=== PATIENT | male | born 1980 | race Two or more races ===

== ENCOUNTER 2021-09-25 15:34 | Emergency (ER) | payer MEDICAID, MEDICARE, OTHER ==
[~2021-09-25] VITALS: Ht 175.3 cm; Wt 77.1 kg
--- NOTE | 2021-09-25 16:00 | NUR ---
RADHA GODWIN "From Streets complaining people after him/paranoia and CP". PATIENT IS ASLEEP BUT AROUSABLE. ABLE TO RESPOND TO VERBAL COMMAND. WHEN ASKED HOW HE WAS HE SAID HE FEELS GREAT. PLACED IN RM 13, VITALS CHECKED.
[2021-09-25] MEDS ORDERED: OLANZAPINE 5 MG TABLET PO ONE (16:30)
[2021-09-25] MEDS ORDERED: ACETAMINOPHEN ES 500 MG TABLET PO ONE (16:30)
[2021-09-25] MEDS ORDERED: ASPIRIN 81 MG TAB.CHEW PO ONE (16:30)
[2021-09-25] MEDS ORDERED: IV NS 0.9% 1,000 ML BAG IV ONE (16:30)
[2021-09-25 16:46] LABS: BASOPHILS % (AUTO) 0.5 % (0.0-2.0); EOSINOPHILS % (AUTO) 3.8 % (0.0-6.0); HEMATOCRIT 42 % (39-51); HEMOGLOBIN 13.2 g/dL (13.5-17.5); LYMPHOCYTES # (AUTO) 1.8 K/uL (0.8-4.8); LYMPHOCYTES % (AUTO) 31.5 % (20.0-44.0); MEAN CORPUSCULAR HGB CONC 32 g/dl (31.0-36.0); MEAN CORPUSCULAR VOLUME 87 fL (80-96); MONOCYTES # (AUTO) 0.4 K/uL (0.1-1.30); MONOCYTES % (AUTO) 7.2 % (2.0-12.0); NEUTROPHILS # (AUTO) 3.2 K/uL (1.8-8.9); PLATELET COUNT (AUTO) 303 K/uL (150-450); WHITE BLOOD COUNT (AUTO) 5.7 K/uL (4.3-11.0)
[2021-09-25] MEDS ORDERED: ACETAMINOPHEN ES 500 MG TABLET ONE (16:49)
[2021-09-25] MEDS ORDERED: ASPIRIN EC 81 MG TABLET.DR PO ONE (16:50)
[2021-09-25] MEDS ORDERED: OLANZAPINE 5 MG TABLET ONE (16:50)
--- NOTE | 2021-09-25 17:05 | NUR ---
IV CANNULA INSERTED ON LEFT AC USING G18 NEEDLE. DUE MEDS GIVEN. NS 1L BOLUS STARTED.
--- NOTE | 2021-09-25 17:20 | NUR ---
ALEXANDRA JEROME [facility] [phone]
[2021-09-25 18:26] LABS: ALANINE AMINOTRANSFERASE 20 U/L (12-78); ALBUMIN 3.3 g/dL (3.4-5.0); ALCOHOL, BLOOD < 3 mg/dL (0-0); ALKALINE PHOSPHATASE 87 U/L (46-116); ASPARTATE AMINOTRANSFERASE 11 U/L (15-37); BILIRUBIN,TOTAL 0.1 mg/dL (0.2-1.0); CALCIUM, SERUM 9.2 mg/dL (8.5-10.1); CARBON DIOXIDE 24 mmol/L (21-32); CHLORIDE 108 mmol/L (98-107); GLUCOSE 111 mg/dL (74-106); SODIUM SERUM 143 mmol/L (136-145); TOTAL PROTEIN, SERUM 6.7 g/dL (6.4-8.2); UREA NITROGEN, BLOOD 12 mg/dL (7-18)
--- NOTE | 2021-09-25 18:30 | NUR ---
PATIENT IS ASLEEP BUT AROUSABLE. BEING INSTRUCTED THAT WE NEED TO COLLECT URINE SAMPLES. PT CANNOT PROVIDE URINE AT THE MOMENT.
[2021-09-25 19:12] LABS: ACETAMINOPHEN 0 ug/ml (10-30)
--- NOTE | 2021-09-25 20:24 | NUR ---
PATIENT STILL CANNOT PROVIDE URINE SAMPLES.
[2021-09-25 20:53] LABS: BILIRUBIN,DIRECT 0.1 mg/dL (0.0-0.2)
--- NOTE | 2021-09-25 22:34 | NUR ---
iv cannula removed.
--- NOTE | 2021-09-25 22:34 | NUR ---
Patient discharged to home in stable condition. Written and verbal after care instructions given. Patient verbalizes understanding of instruction.
[2021-09-25 22:35] VITALS: BP 122/71
== END 2021-09-25 22:36 | disposition home or self-care (01) ==
LOC: ER 15:58
DX: R07.89 Other chest pain (principal); F17.200 Nicotine dependence, unspecified, uncomplicated; E87.8 Other disorders of electrolyte and fluid balance, not elsewhere classified; F29 Unspecified psychosis not due to a substance or known physiological condition; Z59.00 Homelessness unspecified
CPT/HCPCS: 36415; 71045; 80048; 80076; 80143; 80320; 82550; 83880; 84484; 85025; 93005 ×2; 99285; J7030; G0480

== ENCOUNTER 2021-09-26 14:19 | Emergency (ER) | payer MEDICAID, MEDICARE, OTHER ==
[~2021-09-26] VITALS: Ht 180.3 cm; Wt 72.6 kg
--- NOTE | 2021-09-26 15:27 | NUR ---
BIBS C/O HEARING VOICES FOR A WHILE. PT DENIES SUICIDAL THOUGHTS AND INTENT.
--- NOTE | 2021-09-26 15:58 | NUR ---
URINE COLLECTED AND SENT TO LAB
--- NOTE | 2021-09-26 15:58 | NUR ---
COVID SWAB DONE AND SENT TO LAB
[2021-09-26 16:19] LABS: BASOPHILS % (AUTO) 0.3 % (0.0-2.0); EOSINOPHILS % (AUTO) 3.9 % (0.0-6.0); HEMATOCRIT 41 % (39-51); HEMOGLOBIN 13.1 g/dL (13.5-17.5); LYMPHOCYTES # (AUTO) 1.8 K/uL (0.8-4.8); LYMPHOCYTES % (AUTO) 31.2 % (20.0-44.0); MEAN CORPUSCULAR HGB CONC 32 g/dl (31.0-36.0); MEAN CORPUSCULAR VOLUME 88 fL (80-96); MONOCYTES # (AUTO) 0.4 K/uL (0.1-1.30); MONOCYTES % (AUTO) 6.2 % (2.0-12.0); NEUTROPHILS # (AUTO) 3.4 K/uL (1.8-8.9); NEUTROPHILS % (AUTO) 58.4 % (43.0-81.0); PLATELET COUNT (AUTO) 300 K/uL (150-450); RED BLOOD CELL COUNT(AUTO) 4.71 MIL/uL (4.5-6.0); WHITE BLOOD COUNT (AUTO) 5.9 K/uL (4.3-11.0)
[2021-09-26 16:37] LABS: BILIRUBIN,URINE NEGATIVE (NEGATIVE); COLOR,URINE YELLOW (YELLOW); LEUKOCYTE ESTERASE ,URINE NEGATIVE (NEGATIVE); NITRITE, URINE NEGATIVE (NEGATIVE); PH,URINE 5.5 (5.0-8.0); PROTEIN,URINE NEGATIVE (NEGATIVE); UGLUCOSE NEGATIVE (NEGATIVE); UROBILINOGEN,URINE 0.2 EU/dL (0.2)
[2021-09-26 17:08] LABS: ALANINE AMINOTRANSFERASE 16 U/L (12-78); ALBUMIN 3.2 g/dL (3.4-5.0); ALCOHOL, BLOOD < 3 mg/dL (0-0); ALKALINE PHOSPHATASE 85 U/L (46-116); ASPARTATE AMINOTRANSFERASE 10 U/L (15-37); BILIRUBIN,DIRECT 0.1 mg/dL (0.0-0.2); BILIRUBIN,TOTAL 0.2 mg/dL (0.2-1.0); CALCIUM, SERUM 9.1 mg/dL (8.5-10.1); CARBON DIOXIDE 27 mmol/L (21-32); CHLORIDE 107 mmol/L (98-107); GLUCOSE 113 mg/dL (74-106); POTASSIUM 4.2 mmol/L (3.5-5.1); SODIUM SERUM 142 mmol/L (136-145); TOTAL PROTEIN, SERUM 6.8 g/dL (6.4-8.2); UREA NITROGEN, BLOOD 16 mg/dL (7-18)
--- NOTE | 2021-09-26 18:23 | NUR ---
FOOD TRAY PROVIDED
--- NOTE | 2021-09-27 09:46 | NUR ---
ACCEPTED AT [facility] ([facility]) UNDER DR. ARRINGTON REPORT NUMBER: [phone]
--- NOTE | 2021-09-27 09:51 | NUR ---
ALEXANDRA JEROME [phone] MOM
--- NOTE | 2021-09-27 10:00 | NUR ---
[facility] CALLED ETA 60 MINS PER EMRE.
--- NOTE | 2021-09-27 11:03 | NUR ---
TRANSPORT AT BEDSIDE.
--- NOTE | 2021-09-27 11:07 | NUR ---
REPORT GIVEN TO AMELIE HERNDON. [address], [id number]. PATIENT WILL BE GOING TO [facility].
--- NOTE | 2021-09-27 11:49 | NUR ---
PATIENT TRANSPORTED VIA GURNEY BY [facility]
[2021-09-27 11:50] VITALS: BP 117/65
== END 2021-09-27 11:51 ==
LOC: ER 14:23
DX: F29 Unspecified psychosis not due to a substance or known physiological condition (principal); Z59.00 Homelessness unspecified; Z20.822 Contact with and (suspected) exposure to COVID-19
CPT/HCPCS: 36415; 80048; 80076; 80307; 80320; 81003; 85025; 87426; 99285; C9803; G0480

== ENCOUNTER 2021-11-19 01:20 | Emergency (ER) | payer MEDICAID, MEDICARE ==
[~2021-11-19] VITALS: Ht 175.3 cm; Wt 77.1 kg
[2021-11-19 01:35] VITALS: BP 108/70
[2021-11-19] MEDS ORDERED: IBUPROFEN 600 MG TABLET ONE (02:26)
[2021-11-19] MEDS ORDERED: OLANZAPINE 5 MG TABLET ONE (02:27)
--- NOTE | 2021-11-19 02:29 | NUR ---
Patient discharged to home in stable condition. Written and verbal after care instructions given. Patient verbalizes understanding of instruction. Pt ambulatory with a steady gait
[2021-11-19] MEDS ORDERED: OLANZAPINE 5 MG TABLET PO ONE (02:30)
[2021-11-19] MEDS ORDERED: IBUPROFEN 600 MG TABLET PO ONE (02:30)
== END 2021-11-19 02:33 | disposition home or self-care (01) ==
LOC: ER 01:21
DX: M79.10 Myalgia, unspecified site (principal); R00.2 Palpitations; F15.10 Other stimulant abuse, uncomplicated; F31.9 Bipolar disorder, unspecified; F17.200 Nicotine dependence, unspecified, uncomplicated; Z59.00 Homelessness unspecified

== ENCOUNTER 2021-12-20 20:27 | Emergency (ER) | payer MEDICAID, MEDICARE ==
[~2021-12-20] VITALS: Ht 167.6 cm; Wt 62.6 kg
--- NOTE | 2021-12-20 20:45 | NUR ---
COVID SWAB DONE
--- NOTE | 2021-12-20 20:45 | NUR ---
PATIENT UNABLE TO PROVIDE URINE AT THIS TIME.
[2021-12-20 21:22] LABS: BASOPHILS % (AUTO) 0.4 % (0.0-2.0); EOSINOPHILS % (AUTO) 3.9 % (0.0-6.0); HEMATOCRIT 41 % (39-51); HEMOGLOBIN 13.5 g/dL (13.5-17.5); LYMPHOCYTES # (AUTO) 2.3 K/uL (0.8-4.8); LYMPHOCYTES % (AUTO) 24.2 % (20.0-44.0); MEAN CORPUSCULAR HGB CONC 33 g/dl (31.0-36.0); MEAN CORPUSCULAR VOLUME 85 fL (80-96); MONOCYTES # (AUTO) 0.7 K/uL (0.1-1.30); NEUTROPHILS # (AUTO) 6.2 K/uL (1.8-8.9); NEUTROPHILS % (AUTO) 64.5 % (43.0-81.0); PLATELET COUNT (AUTO) 312 K/uL (150-450); RED BLOOD CELL COUNT(AUTO) 4.79 MIL/uL (4.5-6.0); WHITE BLOOD COUNT (AUTO) 9.6 K/uL (4.3-11.0)
[2021-12-20 21:24] LABS: BILIRUBIN,URINE NEGATIVE (NEGATIVE); COLOR,URINE YELLOW (YELLOW); LEUKOCYTE ESTERASE ,URINE NEGATIVE (NEGATIVE); NITRITE, URINE NEGATIVE (NEGATIVE); PROTEIN,URINE NEGATIVE (NEGATIVE); UGLUCOSE NEGATIVE (NEGATIVE); UROBILINOGEN,URINE 0.2 EU/dL (0.2)
[2021-12-20] MEDS ORDERED: OLANZAPINE 5 MG TABLET ONE (21:56)
[2021-12-20] MEDS ORDERED: OLANZAPINE ZYDIS 5 MG TAB.RAPDIS PO ONE (22:00)
[2021-12-20 22:15] LABS: ALANINE AMINOTRANSFERASE 31 U/L (12-78); ALBUMIN 4.2 g/dL (3.4-5.0); ALCOHOL, BLOOD < 3 mg/dL (0-0); ALKALINE PHOSPHATASE 94 U/L (46-116); ASPARTATE AMINOTRANSFERASE 25 U/L (15-37); BILIRUBIN,DIRECT 0.2 mg/dL (0.0-0.2); BILIRUBIN,TOTAL 0.7 mg/dL (0.2-1.0); CALCIUM, SERUM 9.4 mg/dL (8.5-10.1); CARBON DIOXIDE 29 mmol/L (21-32); CHLORIDE 103 mmol/L (98-107); CREATININE 1.1 mg/dL (0.6-1.3); GLUCOSE 86 mg/dL (74-106); POTASSIUM 4.3 mmol/L (3.5-5.1); SODIUM SERUM 137 mmol/L (136-145); TOTAL PROTEIN, SERUM 8.1 g/dL (6.4-8.2); UREA NITROGEN, BLOOD 15 mg/dL (7-18)
[2021-12-20 22:24] LABS: ACETAMINOPHEN 0 ug/ml (10-30)
[2021-12-20] MEDS: OLANZAPINE 5 MG TABLET PO ONE (22:26)
--- NOTE | 2021-12-20 22:49 | NUR ---
PATIENT DENIES S/I H/I DOES NOT WISH TO GO VOLUNTARY TO A PSYCH FACILITY. AWARE.
[2021-12-20 22:52] VITALS: BP 140/66
--- NOTE | 2021-12-20 22:52 | NUR ---
Patient discharged to home in stable condition. Written and verbal after care instructions given. Patient verbalizes understanding of instruction.
== END 2021-12-20 22:52 | disposition home or self-care (01) ==
LOC: ER 20:33
DX: F29 Unspecified psychosis not due to a substance or known physiological condition (principal); F15.10 Other stimulant abuse, uncomplicated; Z59.00 Homelessness unspecified; F31.9 Bipolar disorder, unspecified; Z20.822 Contact with and (suspected) exposure to COVID-19
CPT/HCPCS: 36415; 80048; 80076; 80143; 80307; 80320; 81003; 85025; 87426; 99284; C9803; G0480

== ENCOUNTER 2022-01-12 00:19 | Emergency (ER) | payer MEDICAID, MEDICARE ==
[~2022-01-12] VITALS: Ht 175.3 cm; Wt 77.1 kg
--- NOTE | 2022-01-12 00:35 | NUR ---
[id number]. HEARING VOICES TELLING HIM TO HURT HIMSELF. WANTS TO VOLUNTARY ADMISSION TO PSYCH. PT A/OX3. TOLERATING R/A WELL WITH NO SOB. RESP EVEN AND NON LABORED. CONNECTED PT TO POX AND MONITOR.
[2022-01-12 00:47] LABS: BASOPHILS % (AUTO) 0.3 % (0.0-2.0); EOSINOPHILS % (AUTO) 1.8 % (0.0-6.0); HEMATOCRIT 39 % (39-51); HEMOGLOBIN 12.9 g/dL (13.5-17.5); LYMPHOCYTES # (AUTO) 0.8 K/uL (0.8-4.8); LYMPHOCYTES % (AUTO) 10.5 % (20.0-44.0); MEAN CORPUSCULAR HGB CONC 33 g/dl (31.0-36.0); MEAN CORPUSCULAR VOLUME 88 fL (80-96); MONOCYTES # (AUTO) 0.5 K/uL (0.1-1.30); MONOCYTES % (AUTO) 6.7 % (2.0-12.0); NEUTROPHILS # (AUTO) 6.5 K/uL (1.8-8.9); NEUTROPHILS % (AUTO) 80.7 % (43.0-81.0); PLATELET COUNT (AUTO) 256 K/uL (150-450); RED BLOOD CELL COUNT(AUTO) 4.47 MIL/uL (4.5-6.0); WHITE BLOOD COUNT (AUTO) 8.1 K/uL (4.3-11.0)
--- NOTE | 2022-01-12 01:03 | NUR ---
URINE COLLECTED AND SENT TO LAB
[2022-01-12 01:16] LABS: BILIRUBIN,URINE NEGATIVE (NEGATIVE); COLOR,URINE YELLOW (YELLOW); LEUKOCYTE ESTERASE ,URINE NEGATIVE (NEGATIVE); NITRITE, URINE NEGATIVE (NEGATIVE); PROTEIN,URINE NEGATIVE (NEGATIVE); UGLUCOSE NEGATIVE (NEGATIVE); UROBILINOGEN,URINE 0.2 EU/dL (0.2)
[2022-01-12 01:20] LABS: ALANINE AMINOTRANSFERASE 34 U/L (12-78); ALBUMIN 3.7 g/dL (3.4-5.0); ALKALINE PHOSPHATASE 96 U/L (46-116); ASPARTATE AMINOTRANSFERASE 28 U/L (15-37); BILIRUBIN,DIRECT 0.2 mg/dL (0.0-0.2); BILIRUBIN,TOTAL 0.6 mg/dL (0.2-1.0); CARBON DIOXIDE 30 mmol/L (21-32); CHLORIDE 105 mmol/L (98-107); CREATININE 1.3 mg/dL (0.6-1.3); GLUCOSE 99 mg/dL (74-106); POTASSIUM 3.7 mmol/L (3.5-5.1); SODIUM SERUM 139 mmol/L (136-145); TOTAL PROTEIN, SERUM 7.5 g/dL (6.4-8.2); UREA NITROGEN, BLOOD 13 mg/dL (7-18)
[2022-01-12 01:21] LABS: ACETAMINOPHEN 0 ug/ml (10-30); ALCOHOL, BLOOD < 3 mg/dL (0-0)
--- NOTE | 2022-01-12 02:11 | NUR ---
FACESHEET AND CLINICALS FAXED TO [facility].
--- NOTE | 2022-01-12 06:35 | NUR ---
TRANSFER INFORMATION PT ACCEPTED AT [facility] UNDER DR. KURTZ NUMBER FOR REPORT: SEND AFTER 1300
--- NOTE | 2022-01-12 08:05 | NUR ---
PT RESTING W/ EYES CLOSED; ABLE TO BE AWAKENED. NO ACUTE DISTRESS. BREAKFAST TRAY PROVIDED.
--- NOTE | 2022-01-12 13:40 | NUR ---
CALLED [facility] AND SET UP S TRANSPORT ETA [phone]
[2022-01-12 14:00] VITALS: BP 115/65
--- NOTE | 2022-01-12 15:38 | NUR ---
patient picked up by [facility] going to so [facility]yna in no distress.
== END 2022-01-12 15:38 ==
LOC: ER 00:20
DX: R45.851 Suicidal ideations (principal); R44.0 Auditory hallucinations; F22 Delusional disorders; Z20.822 Contact with and (suspected) exposure to COVID-19; Z59.00 Homelessness unspecified; F31.9 Bipolar disorder, unspecified
CPT/HCPCS: 99285; 85025; 80048; 80076; 81003; 36415; 87426; 80143; 80320; 80307; C9803; G0480

== ENCOUNTER 2022-01-21 13:23 | Emergency (ER) | payer MEDICAID, MEDICARE ==
[~2022-01-21] VITALS: Ht 175.3 cm; Wt 77.1 kg
--- NOTE | 2022-01-21 13:45 | NUR ---
[address] ACTING BIZZARE/ERRATIC, ESCORTED BY [employer]. THE PATIENT IS ALERT AND ORIENTED X1. DENIES PAIN. IN ROOM AIR AND DENIES SOB. RESPIRATION REGULAR AND UNLABORED. SITTER AT THE BEDSIDE. WILL CONTINUE TO MONITOR THE PATIENT.
[2022-01-21] MEDS ORDERED: LORAZEPAM INJ 2 MG/ML VIAL IM ONE (14:00)
[2022-01-21] MEDS ORDERED: HALOPERIDOL LACTATE INJ 5 MG/ML VIAL IM ONE (14:00)
[2022-01-21] MEDS ORDERED: diphenhydrAMINE HCL 50 MG/ML VIAL IM ONE (14:00)
[2022-01-21 14:05] LABS: BASOPHILS % (AUTO) 0.4 % (0.0-2.0); EOSINOPHILS % (AUTO) 1.7 % (0.0-6.0); HEMATOCRIT 38 % (39-51); HEMOGLOBIN 12.9 g/dL (13.5-17.5); LYMPHOCYTES # (AUTO) 1.9 K/uL (0.8-4.8); LYMPHOCYTES % (AUTO) 22.6 % (20.0-44.0); MEAN CORPUSCULAR HGB CONC 34 g/dl (31.0-36.0); MEAN CORPUSCULAR VOLUME 85 fL (80-96); MONOCYTES # (AUTO) 0.6 K/uL (0.1-1.30); MONOCYTES % (AUTO) 6.7 % (2.0-12.0); NEUTROPHILS # (AUTO) 5.9 K/uL (1.8-8.9); NEUTROPHILS % (AUTO) 68.6 % (43.0-81.0); PLATELET COUNT (AUTO) 338 K/uL (150-450); RED BLOOD CELL COUNT(AUTO) 4.48 MIL/uL (4.5-6.0); WHITE BLOOD COUNT (AUTO) 8.6 K/uL (4.3-11.0)
[2022-01-21] MEDS ORDERED: LORAZEPAM INJ 2 MG/ML VIAL ONE (14:11)
[2022-01-21] MEDS ORDERED: diphenhydrAMINE HCL 50 MG/ML VIAL ONE (14:12)
[2022-01-21] MEDS ORDERED: HALOPERIDOL LACTATE INJ 5 MG/ML VIAL ONE (14:12)
[2022-01-21 14:14] LABS: CALCIUM, SERUM 8.9 mg/dL (8.5-10.1); CARBON DIOXIDE 31 mmol/L (21-32); CHLORIDE 106 mmol/L (98-107); CREATININE 1.3 mg/dL (0.6-1.3); GLUCOSE 74 mg/dL (74-106); SODIUM SERUM 143 mmol/L (136-145); UREA NITROGEN, BLOOD 14 mg/dL (7-18)
[2022-01-21 14:20] LABS: ALANINE AMINOTRANSFERASE 34 U/L (12-78); ALKALINE PHOSPHATASE 103 U/L (46-116); ASPARTATE AMINOTRANSFERASE 23 U/L (15-37); BILIRUBIN,DIRECT 0.1 mg/dL (0.0-0.2); BILIRUBIN,TOTAL 0.4 mg/dL (0.2-1.0)
[2022-01-21 14:22] LABS: ACETAMINOPHEN 0 ug/ml (10-30); ALCOHOL, BLOOD < 3 mg/dL (0-0)
[2022-01-21 14:29] LABS: ALBUMIN 3.9 g/dL (3.4-5.0)
--- NOTE | 2022-01-21 18:45 | NUR ---
COVID ANTIGEN SWAB DONE AND SENT TO THE LAB
--- NOTE | 2022-01-21 18:51 | NUR ---
URINE COLLECTED AND SENT TO THE LAB
[2022-01-21 19:43] LABS: BILIRUBIN,URINE NEGATIVE (NEGATIVE); COLOR,URINE YELLOW (YELLOW); LEUKOCYTE ESTERASE ,URINE NEGATIVE (NEGATIVE); NITRITE, URINE NEGATIVE (NEGATIVE); PH,URINE 7.5 (5.0-8.0); PROTEIN,URINE NEGATIVE (NEGATIVE); UGLUCOSE NEGATIVE (NEGATIVE); UROBILINOGEN,URINE 0.2 EU/dL (0.2)
[2022-01-21 20:07] LABS: BACTERIA,URINE 1+ /HPF (None Seen); RBC,URINE 0-2 /HPF (0-2); SQUAMOUS EPITHELIAL CELL,UR Few /HPF (None Seen); WBC,URINE 0-2 /HPF (0-3)
[2022-01-21 20:08] LABS: URINE AMORPHOUS PHOSPHATES Moderate /HPF (None Seen)
--- NOTE | 2022-01-22 05:52 | NUR ---
Patient discharged to home in stable condition. Written and verbal after care instructions given. Patient verbalizes understanding of instruction.
[2022-01-22 05:53] VITALS: BP 125/70
== END 2022-01-22 05:53 | disposition home or self-care (01) ==
LOC: ER 13:31
DX: F29 Unspecified psychosis not due to a substance or known physiological condition (principal); F15.10 Other stimulant abuse, uncomplicated; F31.9 Bipolar disorder, unspecified; Z59.00 Homelessness unspecified; F20.9 Schizophrenia, unspecified
CPT/HCPCS: 99285; 96372 ×2; 85025; 80048; 80076; 81001; 36415; 87426; 80143; 80320; 80307; J2060; J1200; J1630; C9803; G0480

== ENCOUNTER 2022-02-03 14:22 | Emergency (ER) | payer MEDICAID ==
[~2022-02-03] VITALS: Ht 167.6 cm; Wt 63.5 kg
--- NOTE | 2022-02-03 15:00 | NUR ---
RADHA RA60 "Homeless was picked up from streets- talking to self/hearing voices wants voluntary admit to psych". The patient denies SI/HI. Safety check done. Will continue to monitor the patient.
[2022-02-03 15:18] LABS: BASOPHILS % (AUTO) 0.3 % (0.0-2.0); EOSINOPHILS % (AUTO) 1.9 % (0.0-6.0); HEMATOCRIT 38 % (39-51); HEMOGLOBIN 12.4 g/dL (13.5-17.5); LYMPHOCYTES # (AUTO) 1.6 K/uL (0.8-4.8); LYMPHOCYTES % (AUTO) 16.3 % (20.0-44.0); MEAN CORPUSCULAR HGB CONC 33 g/dl (31.0-36.0); MEAN CORPUSCULAR VOLUME 87 fL (80-96); MONOCYTES # (AUTO) 0.6 K/uL (0.1-1.30); MONOCYTES % (AUTO) 6.4 % (2.0-12.0); NEUTROPHILS # (AUTO) 7.3 K/uL (1.8-8.9); NEUTROPHILS % (AUTO) 75.1 % (43.0-81.0); PLATELET COUNT (AUTO) 281 K/uL (150-450); RED BLOOD CELL COUNT(AUTO) 4.35 MIL/uL (4.5-6.0); WHITE BLOOD COUNT (AUTO) 9.7 K/uL (4.3-11.0)
[2022-02-03 15:32] LABS: ALANINE AMINOTRANSFERASE 29 U/L (12-78); ALBUMIN 3.5 g/dL (3.4-5.0); ALCOHOL, BLOOD < 3 mg/dL (0-0); ALKALINE PHOSPHATASE 106 U/L (46-116); ASPARTATE AMINOTRANSFERASE 20 U/L (15-37); BILIRUBIN,DIRECT 0.1 mg/dL (0.0-0.2); BILIRUBIN,TOTAL 0.3 mg/dL (0.2-1.0); CALCIUM, SERUM 8.7 mg/dL (8.5-10.1); CARBON DIOXIDE 31 mmol/L (21-32); CHLORIDE 106 mmol/L (98-107); CREATININE 1.1 mg/dL (0.6-1.3); GLUCOSE 90 mg/dL (74-106); POTASSIUM 3.9 mmol/L (3.5-5.1); SODIUM SERUM 141 mmol/L (136-145); TOTAL PROTEIN, SERUM 7.4 g/dL (6.4-8.2); UREA NITROGEN, BLOOD 9 mg/dL (7-18)
[2022-02-03 15:39] LABS: ACETAMINOPHEN < 2 ug/ml (10-30)
[2022-02-03 16:27] LABS: BILIRUBIN,URINE NEGATIVE (NEGATIVE); COLOR,URINE YELLOW (YELLOW); LEUKOCYTE ESTERASE ,URINE NEGATIVE (NEGATIVE); NITRITE, URINE NEGATIVE (NEGATIVE); PH,URINE 5.5 (5.0-8.0); PROTEIN,URINE NEGATIVE (NEGATIVE); UGLUCOSE NEGATIVE (NEGATIVE); UROBILINOGEN,URINE 0.2 EU/dL (0.2)
[2022-02-03] MEDS ORDERED: OLANZAPINE 5 MG TABLET PO ONE (16:30)
[2022-02-03] MEDS ORDERED: OLANZAPINE 5 MG TABLET ONE (16:35)
[2022-02-03 17:00] VITALS: BP 131/84
--- NOTE | 2022-02-03 17:30 | NUR ---
The patient is alert and oriented x3. Denies SI/HI. In room air and denies SOB. Respiration regular and unlabored. The patient stated that he wants to leave hospital and does not want to wait for the discharge papers.
--- NOTE | 2022-02-03 17:52 | NUR ---
Patient eloped from facility. Dr Bonds notified.
== END 2022-02-03 17:53 | disposition left against medical advice (07) ==
LOC: ER 14:24
DX: F29 Unspecified psychosis not due to a substance or known physiological condition (principal); Z59.00 Homelessness unspecified; Z20.822 Contact with and (suspected) exposure to COVID-19; F17.200 Nicotine dependence, unspecified, uncomplicated; F31.9 Bipolar disorder, unspecified
CPT/HCPCS: 99283; 85025; 80048; 80076; 81003; 36415; 87426; 80143; 80320; 80307; C9803; G0480

== ENCOUNTER 2022-05-13 01:06 | Emergency (ER) | payer MEDICARE, MEDICAID ==
[~2022-05-13] VITALS: Ht 175.3 cm; Wt 77.1 kg
[2022-05-13 01:13] VITALS: BP 109/76
--- NOTE | 2022-05-13 01:13 | NUR ---
BIBRA 60 FOR C/O BODY ACHE X 2 HOURS
[2022-05-13] MEDS ORDERED: IBUPROFEN 600 MG TABLET PO ONE (01:30)
[2022-05-13] MEDS ORDERED: IBUPROFEN 600 MG TABLET ONE (01:33)
== END 2022-05-13 01:50 | disposition home or self-care (01) ==
LOC: ER 01:08
DX: B34.9 Viral infection, unspecified (principal); F20.9 Schizophrenia, unspecified; F17.200 Nicotine dependence, unspecified, uncomplicated; Z59.00 Homelessness unspecified